=== PATIENT | female | born 1950 | race Caucasian/White ===

== ENCOUNTER 2018-06-11 10:05 | Day surgery (SDC) | payer MEDICARE, MEDICAID ==
[2018-06-11] VITALS (11 sets, daily range): BP systolic 110–141; BP diastolic 47–73
[~2018-06-11] VITALS: Ht 149.9 cm; Wt 73.8 kg
[2018-06-11] MEDS ORDERED: MESSAGE TO PHARMACY PO ONE (10:30)
[2018-06-11] MEDS ORDERED: dextrose ORAL solution 15 GM/59 ML bottle PO PRN ×2 (10:30)
[2018-06-11] MEDS ORDERED: glucagon, human recombinant 1mg kit SUBCUT PRN (10:30)
[2018-06-11] MEDS ORDERED: insulin Lispro (HumaLOG) vial - multi-dose SQ SCH (10:30)
[2018-06-11] MEDS ORDERED: dextrose 50%-water 50ml dispensing syringe IV PRN ×2 (10:30)
[2018-06-11] MEDS ORDERED: nitroGLYCERIN 0.4mg SUBLingual tab SL PRN (10:30)
[2018-06-11] MEDS ORDERED: normal saline 1,000 ML IV SCH (10:30)
[2018-06-11] MEDS ORDERED: LORazepam 0.5 MG tablet PO PRN (10:30)
[2018-06-11] MEDS ORDERED: diphenhydrAMINE 25mg capsule PO PRN (10:30)
[2018-06-11] MEDS ORDERED: ALBU18HF2 INH (10:54)
[2018-06-11] MEDS ORDERED: ASPI81TA52 PO (10:54)
[2018-06-11] MEDS ORDERED: ERGO500041 PO (10:54)
[2018-06-11] MEDS ORDERED: FURO-150 PO (10:54)
[2018-06-11] MEDS ORDERED: ALB0.5UD IH (10:54)
[2018-06-11] MEDS ORDERED: MULT1TAB74 PO (10:54)
[2018-06-11] MEDS ORDERED: SITA100T11 PO (10:54)
[2018-06-11] MEDS ORDERED: EMTR1TAB13 PO (10:54)
[2018-06-11] MEDS ORDERED: NITR0.4T51 SL (10:54)
[2018-06-11] MEDS ORDERED: ATOR10TA87 PO (10:54)
[2018-06-11] MEDS ORDERED: TURM500C4 PO (10:54)
[2018-06-11] MEDS ORDERED: LISI40TA4 PO (10:54)
[2018-06-11] MEDS ORDERED: METF-438 PO (10:54)
[2018-06-11] MEDS ORDERED: LIDOcaine 1% (10mg/ml)w/preservative injection 20ml MDV ONE (11:55)
[2018-06-11] MEDS ORDERED: midazolam 2 mg/2 ml injection ONE (11:55)
[2018-06-11] MEDS ORDERED: iohexol 350MG/ML 100ml bottle IV ONE (11:55)
[2018-06-11] MEDS ORDERED: fentaNYL/PF 50MCG/1 ML 2ML syringe ONE (11:55)
[2018-06-11] MEDS ORDERED: iohexol 350 MG/ML 50ML vial IV ONE (11:55)
[2018-06-11] MEDS ORDERED: ondansetron/PF 4mg/2ml inj IV PRN (13:45)
[2018-06-11] MEDS ORDERED: OXAZEpam 15mg capsule PO PRN (13:45)
[2018-06-11] MEDS ORDERED: HYDROcodone/acetaminophen 5mg/325mg tablet PO PRN (13:45)
[2018-06-11] MEDS ORDERED: HYDROcodone/acetaminophen 10/325mg tab PO PRN (13:45)
[2018-06-11] MEDS ORDERED: proCHLORperazine 10 MG/2 ml inj IV PRN (13:45)
[2018-06-11] MEDS ORDERED: insulin glargine (Lantus) pen - multi-dose SQ SCH (21:00)
== END 2018-06-11 18:55 | disposition home or self-care (01) ==
LOC: SSTAY O 10:05
PROVIDERS: ATTEND Internal Medicine Cardiovascular Disease
DX: I25.119 Atherosclerotic heart disease of native coronary artery with unspecified angina pectoris (principal); I70.201 Unspecified atherosclerosis of native arteries of extremities, right leg; I25.82 Chronic total occlusion of coronary artery; I10 Essential (primary) hypertension; E78.5 Hyperlipidemia, unspecified; E11.51 Type 2 diabetes mellitus with diabetic peripheral angiopathy without gangrene; J44.9 Chronic obstructive pulmonary disease, unspecified; Z21 Asymptomatic human immunodeficiency virus [HIV] infection status; G47.33 Obstructive sleep apnea (adult) (pediatric); I77.1 Stricture of artery; E66.9 Obesity, unspecified; Z86.19 Personal history of other infectious and parasitic diseases; Z68.36 Body mass index [BMI] 36.0-36.9, adult
CPT/HCPCS: 82948; 93005; 93458; 99152; 99153; A6257; J1644; J2001; J2250; J3010; J7030; Q0163; Q9967; A4620; C1760; C1769; J1815